=== PATIENT | female | born 2000 | race Hispanic/Latino ===

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

== ENCOUNTER 2020-04-14 13:48 | Emergency (ER) | payer SELFPAY | END 2020-04-14 14:20 | disposition home or self-care (01) | LOC: ERS 13:48 | DX: J10.1 Influenza due to other identified influenza virus with other respiratory manifestations (principal) | CPT/HCPCS: 87804; 99283 ==

== ENCOUNTER 2020-12-07 14:49 | Emergency (ER) | payer SELFPAY ==
[2020-12-08 03:35] LABS: SARS-CoV-2 PCR by NAA DETECTED (NotDetected)
== END 2020-12-07 15:14 | disposition home or self-care (01) ==
LOC: ERS 14:49
DX: U07.1 COVID-19 (principal)
CPT/HCPCS: 99283; U0003; U0005

== ENCOUNTER 2021-04-25 20:55 | Emergency (ER) | payer OTHER ==
[2021-04-25] MEDS ORDERED: Boostrix 0.5 ML (Tdap) VIAL ONE (22:46)
[2021-04-25] MEDS ORDERED: Acetaminophen 500 MG TAB ONE (22:50)
== END 2021-04-25 23:00 | disposition home or self-care (01) ==
LOC: ERS 20:55
DX: S01.81XA Laceration without foreign body of other part of head, initial encounter (principal); W01.0XXA Fall on same level from slipping, tripping and stumbling without subsequent striking against object, initial encounter
CPT/HCPCS: 12011; 90471; 90715

== ENCOUNTER 2021-10-19 07:54 | Emergency (ER) | payer OTHER, SELFPAY ==
[2021-10-19] MEDS ORDERED: Ondansetron PF 4 MG/2 ML Vial ONE (08:31)
[2021-10-19] MEDS ORDERED: Acetaminophen 500 MG TAB ONE (08:31)
[2021-10-19 08:50] LABS: #Lymphocytes 1.3 thou/uL (1.20-3.40); #Monocytes 0.3 thou/uL (0.11-0.59); #Neutrophils 5.5 thou/uL (1.40-6.50); %Basophils 0.1 % (0.0-1.0); %Eosinophils 0.7 % (0.0-10.0); %Lymphocytes 18.4 % (21.0-51.0); %Monocytes 4.1 % (0.0-10.0); %Neutrophils 76.8 % (42.0-75.0); Hemoglobin 12.5 g/dL (12.0-16.0); Mean Corpuscular HGB CONC 33.9 g/dL (32.0-36.0); Mean Corpuscular Hemoglobin 32.2 pg (27.0-31.0); Mean Corpuscular Volume 94.9 fL (78.0-98.0); Mean Platelet Volume 6.8 fL (7.4-10.4); Platelet Count 202 thou/uL (130-400); RBC Distribution Width 11.9 % (11.5-14.5); White Blood Cell (WBC) Count 7.2 thou/uL (4.8-10.8)
[2021-10-19 09:09] LABS: ALT (SGPT) 14 U/L (8-55); AST (SGOT) 17 U/L (5-34); Albumin 3.5 g/dL (3.5-5.0); Alkaline Phosphatase 61 U/L (40-110); Anion Gap 13 mmol/L (10-20); BUN (Urea Nitrogen) 6 mg/dL (7.0-18.7); Bilirubin, Total 0.7 mg/dL (0.2-1.2); Calc. Creatinine Clearance 0 mL/min (70-130); Calcium 8.5 mg/dL (7.8-10.44); Carbon Dioxide 23 mmol/L (22-29); Chloride 105 mmol/L (98-107); Estimated GFR 132; Globulin 2.7 g/dL (2.4-3.5); Glucose 76 mg/dL (70-105); Lipase 16 U/L (8-78); Potassium 3.5 mmol/L (3.5-5.1); Protein, Total 6.2 g/dL (6.0-8.3); Sodium 137 mmol/L (136-145)
[2021-10-19 10:12] LABS: Bilirubin Negative (Negative); Blood, Urine Negative (Negative); Clarity Clear (Clear); Glucose, Urine (Dipstick) Normal (Negative); Ketone, Urine 80 mg/dL (Negative); Leukocyte 250 Leu/uL (Negative); Nitrite Negative (Negative); Protein, Urine (Dipstick) 30 mg/dL (Neg-Trace); RBC/HPF 0-3 HPF (0-3); Specific Gravity, Urine 1.031 (1.002-1.036)
[2021-10-19 10:13] LABS: Bacteria/HPF 1+ HPF (None Seen)
== END 2021-10-19 11:36 | disposition home or self-care (01) ==
LOC: ERS 07:54
DX: O23.42 Unspecified infection of urinary tract in pregnancy, second trimester (principal); N39.0 Urinary tract infection, site not specified; Z3A.16 16 weeks gestation of pregnancy; Z20.822 Contact with and (suspected) exposure to COVID-19
CPT/HCPCS: 36415; 80053; 81003; 81015; 83690; 85025; 87804; 96361; 96374; J2405; U0003; U0005